=== PATIENT | male | born 2000 | race Caucasian/White ===

== ENCOUNTER 2022-05-27 23:08 | Emergency (ER) | payer OTHER, BC ==
[2022-05-28] MEDS ORDERED: Phenazopyridine HCl 100 MG TAB PO SCH (02:45)
[2022-05-28 04:16] LABS: Bilirubin Negative (Negative); Blood, Urine Negative (Negative); Clarity Clear (Clear); Glucose, Urine (Dipstick) Normal (Negative); Ketone, Urine Negative (Negative); Leukocyte Negative Leu/uL (Negative); Nitrite Negative (Negative); Protein, Urine (Dipstick) 10 mg/dL (Neg-Trace); Specific Gravity, Urine 1.029 (1.002-1.036); Urobilinogen Normal mg/dL (Less than 2); pH, Urine 6.5 (5.0-9.0)
[2022-05-28 10:53] LABS: Chlam.trachomatis by PCR,Urine Not Detected (NotDetected)
== END 2022-05-28 05:00 | disposition home or self-care (01) ==
LOC: ERS 23:08
DX: S30.21XA Contusion of penis, initial encounter (principal); R30.0 Dysuria; W20.8XXA Other cause of strike by thrown, projected or falling object, initial encounter; Y92.69 Other specified industrial and construction area as the place of occurrence of the external cause
CPT/HCPCS: 81003; 87491; 87591; 99283